=== PATIENT | male | born 1950 | race Caucasian/White ===

== ENCOUNTER 2016-12-30 08:43 | Day surgery (SDC) | payer MEDICARE, OTHER ==
--- NOTE | ~2016-12-30 | EGD ---
EGD REPORT [facility] [address] [place]. [address] NAME: DENEEN DAMON : [birth year] [place] [facility] [place] [id number] AGE: 66 ADM/REG DATE : 12/30/16 MR#: [id number] REPORT SERV DATE: 12/30/16 DICTATED BY: YOHAN UMAÑA DATE: 12/30/16 REPORT STATUS : Draft TRANSCRIBED BY: [facility] DATE: 12/30/16 Endoscopy Center Patient Name: Deneen Damon Date of : 1950 Attending MD: YOHAN UMAÑA MD Procedure Date No Time: 12/30/2016 Procedure: Colonoscopy Indications: Weight loss Referring MD: ALEXY YEE III, MD Medicines: Propofol per Anesthesia Complications: No immediate complications. Procedure: Pre-Anesthesia Assessment: - ASA Grade Assessment: III - A patient with severe systemic disease. After I obtained informed consent, the scope was passed under direct vision. Throughout the procedure, the patient's blood pressure, pulse, and oxygen saturations were monitored continuously. The CF [id number] was introduced through the anus and advanced to the cecum, identified by appendiceal orifice and ileocecal valve. The colonoscopy was performed without difficulty. The patient tolerated the procedure well. The quality of the bowel preparation was adequate to identify polyps. Findings: The perianal and digital rectal examinations were normal. The colon (entire examined portion) appeared normal. Internal hemorrhoids were found during retroflexion and were Grade I (internal hemorrhoids that do not prolapse). Impression: - The entire examined colon is normal. - Internal hemorrhoids. Recommendation: - Discharge patient to home (ambulatory). - Return to nurse practitioner in 3 weeks. Procedure Code(s): --- Professional --- 77587, Colonoscopy, flexible, proximal to splenic flexure; diagnostic, with or without collection of specimen(s) by brushing or washing, with or without colon decompression (separate procedure) Diagnosis Code(s): --- Professional --- K64.0, First degree hemorrhoids R63.4, Abnormal weight loss EGD REPORT [address] [address] NAME: DENEEN DAMON : [birth year] [place] : [place] [facility] [place] [id number] AGE: 66 ADM/REG DATE : 12/30/16 MR#: [id number] REPORT SERV DATE: 12/30/16 DICTATED BY: YOHAN UMAÑA. DATE: 12/30/16 REPORT STATUS : Draft TRANSCRIBED BY: [employer] DATE: 12/30/16 CPT copyright 2013 [employer]. All rights reserved. The codes documented in this report are preliminary and upon scientific investigator review may be revised to meet current compliance requirements. Yohan Umaña MD YOHAN UMAÑA MD 12/30/2016 9:42 AM This report has been signed electronically. Number of Addenda: 0 Note Initiated On: 12/30/2016 9:13 AM Scope Withdrawal Time 0 hours 8 minutes 45 seconds
--- NOTE | ~2016-12-30 | EGD ---
EGD REPORT [facility] [address]. [address] NAME: DENEEN SANDERS : [birth year] [place] [facility] [place] [id number] AGE: 66 ADM/REG DATE : 12/30/16 MR#: [id number] REPORT SERV DATE: 12/30/16 DICTATED BY: YOHAN UMAÑA DATE: 12/30/16 REPORT STATUS : Draft TRANSCRIBED BY: [facility] DATE: 12/30/16 Endoscopy Center Patient Name: Deneen Sanders Date of : 1950 Attending MD: YOHAN UMAÑA MD Procedure Date No Time: 12/30/2016 Procedure: Upper GI endoscopy Indications: Weight loss Referring MD: ALEXY YEE III, MD Medicines: Propofol per Anesthesia Complications: No immediate complications. Procedure: Pre-Anesthesia Assessment: - ASA Grade Assessment: III - A patient with severe systemic disease. After obtaining informed consent, the endoscope was passed under direct vision. Throughout the procedure, the patient's blood pressure, pulse, and oxygen saturations were monitored continuously. The GIF [id number] was introduced through the mouth, and advanced to the second part of duodenum. The upper GI endoscopy was accomplished without difficulty. The patient tolerated the procedure well. Findings: LA Grade B (one or more mucosal breaks greater than 5 mm, not extending between the tops of two mucosal folds) esophagitis with no bleeding was found. A medium-sized hiatus hernia was present. Diffuse mild inflammation characterized by erosions and erythema was found in the stomach. Biopsies were taken with a cold forceps for histology. The examined duodenum was normal. Impression: - LA Grade B reflux esophagitis. - Hiatus hernia. - Chronic gastritis. Biopsied. - Normal examined duodenum. Recommendation: - Discharge patient to home (ambulatory). - Return to nurse practitioner in 3 weeks. Treat pt with prilsec 40 mg po qd. Procedure Code(s): --- Professional --- 08074, Esophagogastroduodenoscopy, flexible, transoral; with biopsy, single or multiple EGD REPORT [facility] [address] [place] [address]. [id number] NAME: DENEEN SANDERS : 52 [place] [facility] [place] [id number] AGE: 66 ADM/REG DATE : 12/30/16 MR#: [id number] REPORT SERV DATE: 12/30/16 DICTATED BY: YOHAN UMAÑA. DATE: 12/30/16 REPORT STATUS : Draft TRANSCRIBED BY: [address] [employer] DATE: 12/30/16 Diagnosis Code(s): --- Professional --- K21.0, Gastro-esophageal reflux disease with esophagitis K44.9, Diaphragmatic hernia without obstruction or gangrene K29.50, Unspecified chronic gastritis without bleeding R63.4, Abnormal weight loss CPT copyright 2013 [employer]. All rights reserved. The codes documented in this report are preliminary and upon construction foreman review may be revised to meet current compliance requirements. Yohan Umaña MD YOHAN UMAÑA MD 12/30/2016 9:26 AM This report has been signed electronically. Number of Addenda: 0 Note Initiated On: 12/30/2016 9:17 AM Scope Withdrawal Time 0 hours 0 minutes 0 seconds [address] [place] [address]
[~2016-12-30 08:43] MED LIST: APRES50 PO; KDUR10 PO; PAX10 PO; PRILO PO; ZOCOR20 PO
== END 2016-12-30 23:59 | disposition home or self-care (01) ==
LOC: DMU 08:43
PROVIDERS: Internal Medicine Gastroenterology
PROC: 0DB68ZX Excision of Stomach, Via Natural or Artificial Opening Endoscopic, Diagnostic (ICD-10-PCS; principal; 2016-12-30 10:30)
PROC: 0DJD8ZZ Inspection of Lower Intestinal Tract, Via Natural or Artificial Opening Endoscopic (ICD-10-PCS; 2016-12-30 10:30)
DX: K31.7 Polyp of stomach and duodenum (principal); K21.0 Gastro-esophageal reflux disease with esophagitis; K44.9 Diaphragmatic hernia without obstruction or gangrene; K29.50 Unspecified chronic gastritis without bleeding; K64.0 First degree hemorrhoids; I10 Essential (primary) hypertension; E78.00 Pure hypercholesterolemia, unspecified; G93.9 Disorder of brain, unspecified; M81.0 Age-related osteoporosis without current pathological fracture; M19.90 Unspecified osteoarthritis, unspecified site; Z98.890 Other specified postprocedural states; Z79.899 Other long term (current) drug therapy
CPT/HCPCS: 88305; J0461